=== PATIENT | female | born 1945 | race Caucasian/White ===

== ENCOUNTER 2016-11-03 06:41 | Outpatient (CLI) ==
[2016-04-12 12:45] VITALS: BMI 29.7
--- NOTE | 2016-11-06 12:40 | ECHO2D ---
Date of Exam: 11/03/16 Ordering Physician: HAYLEY ZABALA Reason for Echo: CAD WITH STENT, SOB, HTN Auscultation: S1, S2 M-Mode Normal Adult Results LV Dimensions Normal Adult Results AoV Opening excursions >1.6 >1.6 LVEDD-base- 3.5-5.8 5.1 Ao root dimensions 2.0-3.7 3.0 LVESD-base- 3.1-4.6 L. Atrium dimensions 1.9-3.8 5.1 Post. Wall thickness 0.8-1.1 1.1 IV septum (thickness) 0.7-1.2 1.2 Post. Wall excursion 0.72-1.3 NORMAL Septal motion NORMAL Systolic motion R. Ventricular cavity 1.5-2.0 NORMAL LVEF 60% 50% Paradoxical septal wall motion NORMAL 2-D : NORMAL VALVES--WEAK NORMAL LEFT VENTRICULAR CONTRACTILITY--NO EFFUSION, NO THROMBUS, ENLARGED LEFT ATRIAL SIZE M-MODE: MV: NORMAL AV: NORMAL TV: NORMAL PV: CHAMBER SIZE: ENLARGED LEFT ATRIAL SIZE WALL MOTION: NORMAL PERICARDIUM: NORMAL INTERPRETATION: 1. BORDERLINE LEFT VENTRICULAR HYPERTROPHY WITH ENLARGED LEFT ATRIAL CAVITY 2. NORMAL LEFT VENTRICULAR CONTRACTILITY 3. NORMAL VALVES MTDD
== END 2016-11-03 06:42 | disposition home or self-care (01) ==
LOC: CAR 06:41
PROVIDERS: ATTEND Internal Medicine
DX: R06.02 Shortness of breath (principal); I10 Essential (primary) hypertension; I25.10 Atherosclerotic heart disease of native coronary artery without angina pectoris; Z95.5 Presence of coronary angioplasty implant and graft

== ENCOUNTER 2016-11-06 07:06 | Outpatient (CLI) ==
[2016-04-12 12:45] VITALS: BMI 29.7
--- NOTE | 2016-11-08 11:40 | STRESSMOD ---
Ordering Physician: HAYLEY ZABALA Date of Test: 11/06/16 Medical History: SOB, HTN, CAD WITH STENT Current Medications: LOSARTAN, ATORVASTATIN, ATENOLOL, FUROSEMIDE, CATALINA, DIAZEPAM Physical Findings: S1, S2 NO S3 Resting EKG: SINUS RHYTHM/NO ACUTE CHANGES Target Heart Rate: 128/151 STAGE MPH/GRADE HEART RATE BPM BLOOD PRESSURE MMHG RHYTHM S-T SEGMENT UP DOWN SYMPTOMS,COMMENTS At Rest 58 166/80 SR X NONE 1 1.7/0% 92 180/70 SR X NONE 2 1.7/5% 95 168/78 SR X NONE 3 1.7/10% 4 2.5/12% 5 3.4/14% 6 4.2/16% 7 5.18% Immediately after 100 SR X SHORT OF BREATH Total Time: 7:13 Maximum Heart Rate Reached: 100 Reason for Termination: SHORT OF BREATH 3 MIN POST EXERCISE--HR/BPM 68, SINUS RHYTHM, ST +/- ____ INTERPRETATION: 98% OXYGEN SATURATION WITH EXERCISE ON ROOM AIR METS 4.6 1. NO EVIDENCE OF ISCHEMIA BY ST-T WAVE FROM RESTING HEART RATE 58/MIN TO 100/ MIN WITH EXERCISE 2. NO CHEST PAIN OR CHEST DISCOMFORT 3. NO ARRHYTHMIAS 4. BLOOD PRESSURE RESPONSE: HYPERTENSION AT REST AND WITH EXERCISE NORMAL LEFT VENTRICULAR CONTRACTILITY--RESTING AND POST EXERCISE BY ECHO MTDD
--- NOTE | 2016-11-08 11:42 | ECHOSTRESS ---
Date of Exam: 11/06/16 Ordering Physician: HAYLEY ZABALA Reason for Echo: SOB, HTN, CAD WITH STENT, STRESS TEST--NO ISCHEMIA M-Mode Normal Adult Results LV Dimensions Normal Adult Results AoV Opening excursions >1.6 LVEDD-base- 3.5-5.8 Ao root dimensions 2.0-3.7 LVESD-base- 3.1-4.6 L. Atrium dimensions 1.9-3.8 Post. Wall thickness 0.8-1.1 IV septum (thickness) 0.7-1.2 Post. Wall excursion 0.72-1.3 Septal motion Systolic motion R. Ventricular cavity 1.5-2.0 LVEF 60% Paradoxical septal wall motion 2-D: NORMAL LEFT VENTRICULAR CONTRACTILITY--RESTING AND POST EXERCISE M-MODE: MV: AV: TV: PV: CHAMBER SIZE: WALL MOTION: NORMAL LEFT VENTRICULAR CONTRACTILITY--RESTING AND POST EXERCISE PERICARDIUM: INTERPRETATION: 1. NORMAL LEFT VENTRICULAR CONTRACTILITY--RESTING AND POST EXERCISE MTDD
== END 2016-11-06 07:07 | disposition home or self-care (01) ==
LOC: CAR 07:06
PROVIDERS: ATTEND Internal Medicine
DX: R06.02 Shortness of breath (principal); I10 Essential (primary) hypertension; I25.10 Atherosclerotic heart disease of native coronary artery without angina pectoris; Z95.5 Presence of coronary angioplasty implant and graft

== ENCOUNTER 2016-12-18 07:21 | Day surgery (SDC) ==
[2016-04-12 12:45] VITALS: BMI 29.7
[2016-12-18] MEDS ORDERED: LIDOCAINE 1% 20 ML MDV ID ONE (07:41)
[2016-12-18] MEDS ORDERED: LIDOCAINE 1% 20 ML MDV ONE (07:41)
[2016-12-18] MEDS ORDERED: DIPRIVAN 20 ML VIAL IVP ONE (09:15)
[2016-12-18] MEDS ORDERED: VERSED ONE (09:15)
[2016-12-18 10:22] VITALS: BP 134/72; TEMP 97.8
--- NOTE | 2016-12-18 14:07 | OP ---
PROCEDURE: COLONOSCOPY TO THE CECUM WITH SNARE POLYPECTOMY. ENDOSCOPIST: Afua POLLARD M.D. INDICATION: HISTORY OF ADENOMATOUS POLYPS, LAST COLONOSCOPY 5 YEARS PRIOR. INSTRUMENT: PCDynamic Yield-190. MEDICATION: PER ANESTHESIA. PROCEDURE: The patient was positioned for colonoscopy. The digital rectal exam was negative. The colonoscope was inserted through the anus and advanced to the cecum. The cecum was identified using the ileocecal valve and the appendiceal orifice as landmarks. The scope was slowly withdrawn through an adequately prepped colon. A small polyp at 60 cm removed using cold snare polypectomy. A second polyp at 20 cm removed using cold snare polypectomy. Scattered diverticula noted in left colon. Retroflex exam was otherwise normal. The patient tolerated the procedure well without immediate complication. Withdrawal time 12 minutes, 10 seconds. PLAN: 1. Review pathology. 2. Anticipate repeat colonoscopy in 5 years. CC: DR. SAGRARIO GALLAGHER
== END 2016-12-18 10:36 | disposition home or self-care (01) ==
LOC: SURG 07:21
PROVIDERS: ATTEND Internal Medicine Gastroenterology
DX: Z86.010 Personal history of colon polyps (principal); D12.4 Benign neoplasm of descending colon; D12.7 Benign neoplasm of rectosigmoid junction; K57.30 Diverticulosis of large intestine without perforation or abscess without bleeding

== ENCOUNTER 2017-07-27 10:45 | Outpatient (RCR) ==
[2016-04-12 12:45] VITALS: BMI 29.7
== END 2017-07-28 ==
LOC: NEWBEG 10:45
PROVIDERS: ATTEND Psychiatry & Neurology Psychiatry
DX: F32.2 Major depressive disorder, single episode, severe without psychotic features (principal)
CPT/HCPCS: 90792

== ENCOUNTER 2018-09-05 07:46 | Outpatient (CLI) ==
[2016-04-12 12:45] VITALS: BMI 29.7
--- NOTE | 2018-09-05 08:32 | US ---
EXAM: Limited abdominal ultrasound. History: Elevated liver enzymes. Comparison: CT abdomen pelvis 01/15/2015 Technique: Multiple sonographic images through the abdomen were obtained. Color duplex Doppler was used to interrogate vascular flow. Findings: The liver is not enlarged. Status post cholecystectomy. No focal liver lesions identified sonograph ically. There is antegrade flow within the main portal vein. The liver does not appear fatty. Comm on bile duct measures 0.4 cm in caliber. The visualized pancreas demonstrates no gross abnormality. Limited visualization of the right kidney demonstrates no evidence for hydronephrosis. Impression: 1. No acute sonographic findings. 2. Status post cholecystectomy
== END 2018-09-05 07:47 | disposition home or self-care (01) ==
LOC: RAD 07:46
PROVIDERS: ATTEND Internal Medicine
DX: R94.5 Abnormal results of liver function studies (principal)

== ENCOUNTER 2018-12-05 10:48 | Outpatient (CLI) | payer OTHER ==
[2016-04-12 12:45] VITALS: BMI 29.7
--- NOTE | 2018-12-05 11:23 | DI ---
EXAM: Two views of the chest. History: Cough. Comparison: Chest radiograph 06/28/2015 Findings: Heart is borderline enlarged. No focal consolidation. No appreciable pleural fluid and n o pneumothorax. No acute osseous abnormalities. Calcified granulomas again seen within the thorax. Coronary calcifications or stents. Impression: Borderline cardiomegaly without acute disease in the chest. Coronary artery disease
== END 2018-12-05 10:49 | disposition home or self-care (01) ==
LOC: RAD 10:48
PROVIDERS: ATTEND Internal Medicine
DX: R05 Cough (principal)

== ENCOUNTER 2021-01-31 09:48 | Inpatient (IN) ==
--- NOTE | 2021-01-31 10:56 | US ---
EXAM: Bilateral lower extremity venous doppler. HISTORY: Bilateral lower extremity pain. Left leg swelling. COMPARISON: None. TECHNIQUE: A duplex Doppler study was performed consisting of integrated two dimensional (2D) real-t ivone imaging color flow Doppler and Doppler spectral analysis utilizing linear array probes. FINDINGS: There is normal flow, venous waveforms, compressibility and augmentation of flow within th e right and left common femoral, greater saphenous, profunda, femoral, popliteal, posterior tibial, a nterior tibial and peroneal veins. IMPRESSION: No evidence for right or left lower extremity deep vein thrombosis at the levels examined.
[2021-01-31 14:36] VITALS: BMI 31.6
[2021-01-31] MEDS ORDERED: TYLENOL PO PRN (14:57)
[2021-01-31] MEDS ORDERED: NITROSTAT SL PRN (14:57)
[2021-01-31] MEDS ORDERED: ATROPINE SULFATE PFS IVP PRN (14:57)
[2021-01-31 15:14] LABS: BASOPHILS % (AUTO) 0.4 % (0.0-3.0); EOSINOPHILS # (AUTO) 0.1 K/ul (0.0-0.7); HEMATOCRIT 42.7 % (37.0-47.0); HEMOGLOBIN 13.8 g/dl (12.0-16.0); IMMATURE GRANULOCYTE % (AUTO) 0.2 % (0.0-5.0); LYMPHOCYTES % (AUTO) 21.6 (10.0-50.0); MEAN CORPUSCULAR HEMOGLOBIN 27.7 pg (27.0-31.0); MEAN CORPUSCULAR HGB CONC 32.3 (31.8-35.4); MEAN CORPUSCULAR VOLUME 85.7 fl (81.0-99.0); MONOCYTES # (AUTO) 0.8 K/uL (0.4-2.0); MONOCYTES % (AUTO) 9.3 (0-10); NEUTROPHILS # (AUTO) 6.1 K/ul (2.0-6.9); NEUTROPHILS % (AUTO) 67.5 % (42.2-75.2); PLATELET COUNT 232 10^3/uL (140-440); RDW COEFFICIENT OF VARIATION 13.6 % (11.6-14.8); RED BLOOD COUNT 4.98 10^6/ul (4.20-5.40); WHITE BLOOD COUNT 9.03 K/ul (4.6-10.2)
[2021-01-31 15:32] LABS: ALANINE AMINOTRANSFERASE 15.7 U/L (0-35); ASPARTATE AMINO TRANSFERASE 27.4 U/L (14-36); BILIRUBIN,TOTAL 0.75 mg/dL (0.2-1.3); BLOOD UREA NITROGEN 18.3 mg/dL (7-17); CALCIUM 9.74 mg/dL (8.4-10.2); CARBON DIOXIDE 31.5 mmol/L (22-30.0); CHLORIDE 104.1 mmol/L (98-107); CREATINE KINASE 81.5 U/L (30-135); CREATININE 0.81 mg/dL (0.60-1.30); GLUCOSE 104.2 mg/dL (74-106); POTASSIUM 3.79 mmol/L (3.5-5.1); SODIUM 140.1 mmol/L (134.5-145); TOTAL PROTEIN 6.96 g/dL (6.3-8.2)
[2021-01-31] MEDS ORDERED: LASIX IVP STA (15:34)
[2021-01-31] MEDS ORDERED: TORADOL IVP PRN (15:36)
[2021-01-31] MEDS ORDERED: TORADOL IVP STA (15:36)
[2021-01-31 15:49] LABS: TROPONIN I < 0.012 ng/ml (0.0000-0.120)
--- NOTE | 2021-01-31 16:16 | DI ---
EXAM: CHEST FRONTAL VIEW HISTORY: Shortness of breath COMPARISON: 12/05/2018 FINDINGS: Prominent heart size is stable. No acute infiltrates are seen. No vascular congestion. There is no consolidation, visible pleural fluid or pneumothorax. Bones reveal no acute fracture. IMPRESSION: No acute cardiopulmonary process.
[2021-01-31 16:45] LABS: BILIRUBIN,URINE Negative (NEGATIVE); CLARITY,URINE Clear (CLEAR); COLOR,URINE Yellow (YELLOW); GLUCOSE, URINE (UA) Negative (NEGATIVE); KETONES,URINE Negative (NEGATIVE); LEUKOCYTE ESTERASE ,URINE Trace (NEGATIVE); NITRITE,URINE Negative (NEGATIVE); PH,URINE 7.5 (5-9); PROTEIN,URINE Negative (NEGATIVE); URINE, BLOOD Negative (NEGATIVE)
[2021-01-31 16:50] LABS: MUCUS,URINE 1+ (NOT PRESENT); TRANSITIONAL EPI CELLS,URINE 0-2 (NOT PRESENT)
[2021-01-31] MEDS: MICRO-K CAP PO SCH (17:17)
[2021-01-31] MEDS: COREG PO SCH (17:17)
[2021-01-31] MEDS: COZAAR PO SCH (20:09)
[2021-01-31] MEDS: LIPITOR PO SCH (20:09)
[2021-01-31] MEDS: OMEGA-3 FISH OIL PO SCH (20:09)
[2021-01-31] MEDS: [UNRECOGNIZED DRUG - OTHER] PO SCH (20:14)
[2021-01-31] MEDS: VITAMINS A C E ZINC COPPER PO SCH (20:14)
[2021-01-31] MEDS ORDERED: NON-FORMULARY MEDICATION (Omega-3 Fatty Acids-Fish Oil [Fish Oil] 1 EACH capsule) PO SCH (21:00)
[2021-01-31 23:10] LABS: CREATINE KINASE 62.4 U/L (30-135)
[2021-01-31 23:23] LABS: TROPONIN I < 0.012 ng/ml (0.0000-0.120)
[2021-02-01 05:23] LABS: BASOPHILS # (AUTO) 0.1 K/uL (0-0.2); BASOPHILS % (AUTO) 0.8 % (0.0-3.0); EOSINOPHILS # (AUTO) 0.2 K/ul (0.0-0.7); EOSINOPHILS % (AUTO) 2.6 % (0.0-7.0); HEMATOCRIT 41.2 % (37.0-47.0); HEMOGLOBIN 13.6 g/dl (12.0-16.0); IMMATURE GRANULOCYTE % (AUTO) 0.1 % (0.0-5.0); LYMPHOCYTES # (AUTO) 2.4 K/uL (0.60-3.4); LYMPHOCYTES % (AUTO) 32.9 (10.0-50.0); MEAN CORPUSCULAR HEMOGLOBIN 28.2 pg (27.0-31.0); MEAN CORPUSCULAR VOLUME 85.5 fl (81.0-99.0); MONOCYTES # (AUTO) 0.6 K/uL (0.4-2.0); MONOCYTES % (AUTO) 8.8 (0-10); NEUTROPHILS # (AUTO) 3.9 K/ul (2.0-6.9); NEUTROPHILS % (AUTO) 54.8 % (42.2-75.2); PLATELET COUNT 218 10^3/uL (140-440); RDW COEFFICIENT OF VARIATION 13.6 % (11.6-14.8); RED BLOOD COUNT 4.82 10^6/ul (4.20-5.40); WHITE BLOOD COUNT 7.18 K/ul (4.6-10.2)
[2021-02-01 05:37] LABS: ALANINE AMINOTRANSFERASE 15.1 U/L (0-35); ALBUMIN 3.91 g/dL (3.5-5.0); ALKALINE PHOSPHATASE 79.5 U/L (53-141); BILIRUBIN,TOTAL 0.8 mg/dL (0.2-1.3); BLOOD UREA NITROGEN 21.7 mg/dL (7-17); CALCIUM 9.27 mg/dL (8.4-10.2); CARBON DIOXIDE 29.4 mmol/L (22-30.0); CHLORIDE 105.9 mmol/L (98-107); CREATININE 0.71 mg/dL (0.60-1.30); GLUCOSE 104.2 mg/dL (74-106); POTASSIUM 3.77 mmol/L (3.5-5.1); SODIUM 140.9 mmol/L (134.5-145); TOTAL PROTEIN 6.76 g/dL (6.3-8.2)
[2021-02-01] MEDS: PEPCID PO SCH (05:53)
[2021-02-01] MEDS: LASIX IVP SCH (05:53)
[2021-02-01] MEDS: OMEGA-3 FISH OIL PO SCH ×2 (09:17→20:28)
[2021-02-01] MEDS: COZAAR PO SCH ×2 (09:17→20:28)
[2021-02-01] MEDS: MICRO-K CAP PO SCH ×2 (09:18→16:30)
[2021-02-01] MEDS: NORVASC PO SCH (09:18)
[2021-02-01] MEDS: COREG PO SCH ×2 (09:18→16:30)
[2021-02-01] MEDS: ASPIRIN EC PO SCH (09:18)
[2021-02-01] MEDS: LEXAPRO PO SCH (09:18)
[2021-02-01] MEDS: VITAMINS A C E ZINC COPPER PO SCH ×2 (09:25→20:29)
[2021-02-01] MEDS: [UNRECOGNIZED DRUG - OTHER] PO SCH ×2 (09:25→20:29)
--- NOTE | 2021-02-01 11:16 | HP ---
DATE OF SERVICE: 01/31/21 REASON FOR HOSPITALIZATION/HISTORY OF PRESENT ILLNESS: 75--year-old female who presents with swelling left lower leg or knee pain, thigh and back pain times 7 to 8 days. Moderate to severe pain. She could not sleep last night. No history of DVT, no history of injury. History of shortness of breath/got Covid vaccine/no symptoms of CHF/CAD or Covid. PAST MEDICAL HISTORY: LVH CAD with stent Hypertension Dyslipidemia Hyperglycemia DJD lumbar spine ZABRINA/depression History of vertigo Osteoarthritis of the knee PAST SURGICAL HISTORY: Stents times 5. Cholecystectomy. Lumpectomy (right and left) breast. Bilateral cataract surgery REVIEW OF SYSTEMS: CONSTITUTIONAL: No fever, no fatigue. HEENT: No sinus drainage, no sore throat. RESPIRATORY: No cough, no congestion. CARDIOVASCULAR: Mild shortness of breath. No atypical chest pain for coronary artery disease. No angina, CHF symptoms, or palpitations. GASTROINTESTINAL: No melena or abdominal pain. No GERD. GENITOURINARY: No hematuria, [] no prostatism, no polyuria. 3D ARTIST: No blackout, no dizziness, no headache, no double vision. MUSCULOSKELETAL: Osteoarthritis pain. Leg pain, calf, past knee, thigh. No joint swelling. ENDOCRINE: No weight loss, no weight gain. SKIN: Not dry, no rash. PSYCHIATRIC: Not anxious, no depression, no suicidal thoughts, no homicidal thoughts. SOCIAL HISTORY: Nonsmoker. . No alcohol use. No illicit drug use. Two children. FAMILY HISTORY: Father and mother . Brother (s) 4. Sister(s) 0. MEDICATIONS: ASA 81 mg daily Fish Oil 4 daily Atorvastatin 10 mg daily Nitroglycerin p.r.n. K-tab 10 mEq b.i.d. Eye vitamins daily Lasix 20 mg daily Losartan 50 mg b.i.d. Amlodipine 5 mg daily Famotidine 20 mg OTC Lexapro 10 mg daily Coreg 6.25 mg b.i.d. ALLERGIES: NEURONTIN (DIZZINESS), LISINOPRIL(COUGH) PHYSICAL EXAMINATION: V/S: Pulse 69, BP 122/72, temperature 98.1, 02 sat 97%, weight 192.2, height 5'5", BMI 32.0. GENERAL APPEARANCE: Oriented times three. HEENT: Normal. NECK: No JVP, no bruits. RESPIRATORY: Lungs are clear. CARDIOVASCULAR: S1, S2, no S3, no murmur. No cyanosis, clubbing. No ascites. GI/ABDOMEN: No tenderness. Bowel sounds are active. EXTREMITIES: Swelling of left calf, thigh and left knee. Positive for tenderness of calf. +2 nonpitting edema of left greater than right. 3D ARTIST: Deep tendon reflexes, sensory, motor and gait all normal. RECTAL/PELVIC: Dr. Bennett 12/15. Pelvic: Advised yearly. Mammogram 07/18, Dr. Friedman. ASSESSMENT: 1. Left lower extremity with swelling, 2. Leg pain/swelling - rule out DVT. 3. Left sciatica. 4. LVH with increase LAC hypokinetic septum. 5. Shortness of breath with fluid retention. 6. ZABRINA/depression. 7. History of vertigo. 8. Elevated liver enzymes. 9. History of Herpes Zoster. 10. CAD with stent 10/09 Dr. Boles. 11. Hypertension. 12. Dyslipidemia. 13. Status post cholecystectomy. 14. Non-stemi 10/09. 15. Hyperglycemia. 16. Osteoarthritis knee. 17. DJD spine, lumbar. 18. Right lumpectomy, Dr. Friedman. 19. Bilateral cataract surgery 04/16. 20. Hysterectomy. Bilateral venous scan left leg swollen/calf with knee swelling. Scan negative. PLAN: 1. Admit. 2. Routine telemetry orders. 3. T4, TSH. 4. Elevate legs. 5. Continue all home medications. 6. Discontinue p.o. Lasix. 7. Lasix 20 mg IV now and q.a.m. daily. 8. Daily weight. 9. Toradol 30 mg IV now and 8 hourly for pain. TIME SPENT: More than 70 minutes. MTDD
--- NOTE | 2021-02-01 16:51 | CT ---
EXAM: CT left knee without contrast. HISTORY: Acute left knee pain. COMPARISON: None. TECHNIQUE: Multiple axial images of the left knee were obtained without intravenous contrast. Image s were reformatted in the sagittal and coronal planes. FINDINGS: Bone mineralization decreased. No fracture or dislocation identified. There is mild medi al compartment joint space narrowing with subchondral sclerosis. Small marginal osteophytes present in all three knee joint compartments. Small patellar enthesophytes also present. Meniscal calcifica tions noted along with a few additional areas of chondrocalcinosis. There is a moderate-sized joint effusion. No internal air or synovial thickening identified. There is soft tissues are otherwise un remarkable. IMPRESSION: 1. Mild osteoarthritis and patellar enthesopathy. 2. Moderate joint effusion. 3. Chondrocalcinosis. All CT scans are performed using dose optimization techniques as appropriate to the performed exam an d include at least one of the following: Automated exposure control, adjustment of the mA and/or kV according t o size, and the use of iterative reconstruction technique.
--- NOTE | 2021-02-01 16:54 | CT ---
EXAM: CT lumbar spine without contrast HISTORY: Low back pain COMPARISON: None TECHNIQUE: CT lumbar spine performed without intravenous contrast. Coronal and sagittal reformatted images obtained FINDINGS: Vertebral bodies normal height. No fracture. No subluxation. Multilevel marginal osteop hyte formation. Multilevel intervertebral disc space narrowing. Sacroiliac joints intact with mild degenerative change. Mild atherosclerosis. T12-L1: No central canal or neural foraminal narrowing. L1-L2: Posterior disc osteophyte complex and facet arthrosis causing mild bilateral neural foraminal narrowing. L2-L3: Posterior disc osteophyte complex and facet arthrosis causing mild central canal and mild johnny ateral neural foraminal narrowing. L3-L4: Posterior disc osteophyte complex and facet arthrosis causing mild to moderate central canal and mild to moderate bilateral neural foraminal narrowing. L4-L5: Disc osteophyte complex and facet arthrosis causing mild to moderate central canal and mild b ilateral neural foraminal narrowing. L5-L1: Posterior disc osteophyte complex and facet arthrosis causing mild to moderate bilateral neur al foraminal narrowing. Canal and IMPRESSION: 1. No fracture subluxation. 2. Chronic discogenic degenerative disease and facet arthrosis. Please see segmental analysis, noti ng multilevel central canal and neural foraminal narrowing. All CT scans are performed using dose optimization techniques as appropriate to the performed exam an d include at least one of the following: Automated exposure control, adjustment of the mA and/or kV according t o size, and the use of iterative reconstruction technique.
[2021-02-01] MEDS: LIPITOR PO SCH (20:28)
[2021-02-02 05:12] LABS: BASOPHILS # (AUTO) 0.1 K/uL (0-0.2); EOSINOPHILS # (AUTO) 0.3 K/ul (0.0-0.7); EOSINOPHILS % (AUTO) 4.3 % (0.0-7.0); HEMATOCRIT 39.8 % (37.0-47.0); IMMATURE GRANULOCYTE % (AUTO) 0.3 % (0.0-5.0); LYMPHOCYTES # (AUTO) 2.2 K/uL (0.60-3.4); MEAN CORPUSCULAR HEMOGLOBIN 27.7 pg (27.0-31.0); MEAN CORPUSCULAR HGB CONC 32.7 (31.8-35.4); MEAN CORPUSCULAR VOLUME 84.9 fl (81.0-99.0); MONOCYTES # (AUTO) 0.6 K/uL (0.4-2.0); MONOCYTES % (AUTO) 9.2 (0-10); NEUTROPHILS # (AUTO) 2.9 K/ul (2.0-6.9); NEUTROPHILS % (AUTO) 49.2 % (42.2-75.2); PLATELET COUNT 216 10^3/uL (140-440); RDW COEFFICIENT OF VARIATION 13.6 % (11.6-14.8); RED BLOOD COUNT 4.69 10^6/ul (4.20-5.40); WHITE BLOOD COUNT 5.98 K/ul (4.6-10.2)
[2021-02-02 05:24] LABS: ALANINE AMINOTRANSFERASE 14.8 U/L (0-35); ALBUMIN 3.69 g/dL (3.5-5.0); ALKALINE PHOSPHATASE 80.7 U/L (53-141); ASPARTATE AMINO TRANSFERASE 27.1 U/L (14-36); BILIRUBIN,TOTAL 0.57 mg/dL (0.2-1.3); BLOOD UREA NITROGEN 24.4 mg/dL (7-17); CALCIUM 9.04 mg/dL (8.4-10.2); CARBON DIOXIDE 26.9 mmol/L (22-30.0); CHLORIDE 105.4 mmol/L (98-107); CREATININE 0.7 mg/dL (0.60-1.30); GLUCOSE 100.7 mg/dL (74-106); POTASSIUM 3.85 mmol/L (3.5-5.1); SODIUM 137.7 mmol/L (134.5-145); TOTAL PROTEIN 6.41 g/dL (6.3-8.2)
[2021-02-02] MEDS: LASIX IVP SCH (05:55)
[2021-02-02] MEDS: PEPCID PO SCH (05:55)
[2021-02-02] MEDS: VITAMINS A C E ZINC COPPER PO SCH ×2 (09:08→20:50)
[2021-02-02] MEDS: MICRO-K CAP PO SCH ×2 (09:08→16:45)
[2021-02-02] MEDS: [UNRECOGNIZED DRUG - OTHER] PO SCH ×2 (09:08→20:50)
[2021-02-02] MEDS: COZAAR PO SCH ×2 (09:08→20:48)
[2021-02-02] MEDS: ASPIRIN EC PO SCH (09:08)
[2021-02-02] MEDS: NORVASC PO SCH (09:09)
[2021-02-02] MEDS: LEXAPRO PO SCH (09:09)
[2021-02-02] MEDS: OMEGA-3 FISH OIL PO SCH ×2 (09:09→20:48)
[2021-02-02] MEDS: COREG PO SCH ×2 (09:09→16:45)
[2021-02-02] MEDS: DICLOFENAC SODIUM PO SCH ×2 (11:57→16:45)
[2021-02-02] MEDS: DECADRON IM SCH (13:06)
--- NOTE | 2021-02-02 14:23 | PN ---
DATE OF SERVICE: 02/01/2021 SUBJECTIVE: The patient was seen and examined this morning. The patient's condition seem to have improved. Her pain in the left lower extremity has practically subsided with Toradol IV, Lasix with practically not much swelling left in her lower extremity with the fluid retention. It was also present on the right side to less extent. At the patient present time the patient's calf muscles are nontender. REVIEW OF SYSTEMS: CONSTITUTIONAL: No night sweats. No fatigue, malaise, lethargy. No fever or chills. HEENT: Eyes: No visual changes. No eye pain. No eye discharge. ENT: No runny nose. No epistaxis. No sinus pain. No sore throat. No odynophagia. No congestion. RESPIRATORY: No cough, no congestion. No hemoptysis. No shortness of breath. CARDIOVASCULAR: No angina symptoms. No CHF symptoms. No atypical chest pain for CAD. No palpitations. No PND. No orthopnea. GASTROINTESTINAL: No abdominal pain. No nausea or vomiting. No diarrhea or constipation. No hematemesis. No hematochezia. GENITOURINARY: No urgency. No frequency. No dysuria. No hematuria. No obstructive symptoms. No discharge. No pain. No significant abnormal bleeding. MUSCULOSKELETAL: No musculoskeletal pain; no joint swelling. Pain is much better on the left lower extremity NEUROLOGICAL: No headache. No neck pain. No syncope. No seizures. No dizziness. PSYCHIATRIC: Not anxious. No depression. No suicidal thoughts. No homicidal thoughts. SKIN: No rash. No lesions. No wounds. ENDOCRINE: No unexplained weight loss. No weight gain. HEMATOLOGIC/LYMPHATIC: No anemia. No purpura. No petechiae. No prolonged or excessive bleeding. No palpable lymph nodes. PHYSICAL EXAMINATION: GENERAL: The patient is oriented to time, place and person. HEENT: Head normocephalic, atraumatic. Eyes: Extraocular muscles are intact. Pupils are equal, round and reactive to light and accommodation. Ears: No lesions. Nose appeared normal. Throat: No exudate or erythema. NECK: Supple. No JVD, no carotid bruit. No lymphadenopathy or thyromegaly. LUNGS: Decreased breath sounds but clear to auscultation. Percussion note normal. Chest symmetrical. HEART: S1, S2, no S3. No murmurs. No cyanosis or clubbing. No ascites. Pulses: Dorsalis pedis and posterior tibial pulses +1 bilaterally. ABDOMEN: Soft. Nontender. Bowel sounds active. No CVA tenderness. No mass felt. EXTREMITIES: No edema. Full range of motion of all extremities, equal. Both lower extremities are warm. NEUROLOGIC: No focal deficit. Cranial nerves II through XII are grossly intact. No headache. No double vision. SKIN: Not dry. Intact. Turgor - normal. LYMPHATIC: No palpable lymph nodes/no lymphedema. MUSCULOSKELETAL: Normal joints with no swelling. Muscle tone is normal. ASSESSMENT: 1. Left lower extremity swelling with pain, scan was negative. Leg edema has subsided. PLAN: 1. We will do CT scan of the lumbosacral spine CONDITION:Stable. TIME SPENT: More than 30 minutes. Plan and coordination of the patient's care discussed in the presence of nurse. ELLIOTT
[2021-02-02] MEDS: LIPITOR PO SCH (20:48)
[2021-02-03 05:30] LABS: BASOPHILS % (AUTO) 0.5 % (0.0-3.0); EOSINOPHILS % (AUTO) 0.4 % (0.0-7.0); HEMATOCRIT 40.2 % (37.0-47.0); HEMOGLOBIN 13.2 g/dl (12.0-16.0); IMMATURE GRANULOCYTE % (AUTO) 0.3 % (0.0-5.0); LYMPHOCYTES # (AUTO) 1.7 K/uL (0.60-3.4); LYMPHOCYTES % (AUTO) 21.9 (10.0-50.0); MEAN CORPUSCULAR HEMOGLOBIN 28.1 pg (27.0-31.0); MEAN CORPUSCULAR HGB CONC 32.8 (31.8-35.4); MEAN CORPUSCULAR VOLUME 85.7 fl (81.0-99.0); MONOCYTES # (AUTO) 0.4 K/uL (0.4-2.0); MONOCYTES % (AUTO) 5.5 (0-10); NEUTROPHILS # (AUTO) 5.4 K/ul (2.0-6.9); NEUTROPHILS % (AUTO) 71.4 % (42.2-75.2); PLATELET COUNT 238 10^3/uL (140-440); RDW COEFFICIENT OF VARIATION 13.3 % (11.6-14.8); RED BLOOD COUNT 4.69 10^6/ul (4.20-5.40); WHITE BLOOD COUNT 7.59 K/ul (4.6-10.2)
[2021-02-03] MEDS: LASIX IVP SCH (05:31)
[2021-02-03 05:46] LABS: ALANINE AMINOTRANSFERASE 14.5 U/L (0-35); ALBUMIN 3.91 g/dL (3.5-5.0); ALKALINE PHOSPHATASE 101.1 U/L (53-141); ASPARTATE AMINO TRANSFERASE 26.2 U/L (14-36); BILIRUBIN,TOTAL 0.52 mg/dL (0.2-1.3); CALCIUM 9.43 mg/dL (8.4-10.2); CARBON DIOXIDE 23.8 mmol/L (22-30.0); CHLORIDE 105.2 mmol/L (98-107); CREATININE 0.69 mg/dL (0.60-1.30); GLUCOSE 117.8 mg/dL (74-106); POTASSIUM 4.23 mmol/L (3.5-5.1); SODIUM 136.4 mmol/L (134.5-145); TOTAL PROTEIN 6.74 g/dL (6.3-8.2)
[2021-02-03] MEDS: PEPCID PO SCH (05:46)
[2021-02-03] MEDS ORDERED: DECADRON IM SCH (09:00)
[2021-02-03] MEDS: MICRO-K CAP PO SCH (09:42)
[2021-02-03] MEDS: ASPIRIN EC PO SCH (09:42)
[2021-02-03] MEDS: [UNRECOGNIZED DRUG - OTHER] PO SCH (09:42)
[2021-02-03] MEDS: LEXAPRO PO SCH (09:42)
[2021-02-03] MEDS: VITAMINS A C E ZINC COPPER PO SCH (09:42)
[2021-02-03] MEDS: COZAAR PO SCH (09:43)
[2021-02-03] MEDS: COREG PO SCH (09:43)
[2021-02-03] MEDS: DECADRON IM SCH (09:43)
[2021-02-03] MEDS: NORVASC PO SCH (09:43)
[2021-02-03] MEDS: OMEGA-3 FISH OIL PO SCH (09:43)
[2021-02-03] MEDS: DICLOFENAC SODIUM PO SCH (09:43)
--- NOTE | 2021-02-03 13:55 | PN ---
DATE OF SERVICE: 02/02/21 SUBJECTIVE: 75-year-old white female hospitalized with left leg pain which was rated as 7 to 8 on a scale of 1 to 10 with swelling and tightness with some swelling of the right lower extremity. The patient was also mildly short of breath. The patient had fluid retention. The patient's fluid retention has subsided. Venous scan is negative. Her pain is 1 to 2 on a scale of [address] scan of the L-spine showed DJD of L-spine mild to moderate. The left knee CT scan showed moderate effusion with DJD. PHYSICAL EXAMINATION: GENERAL: The patient is oriented to time, place and person. VITAL SIGNS: Temperature 98, pulse 55, respiratory rate 16, BP 165/79. Pulse ox 96%. HEENT: Head normocephalic, atraumatic. Eyes: Extraocular muscles are intact. Pupils are equal, round and reactive to light and accommodation. Ears: No lesions. Nose appeared normal. Throat: No exudate or erythema. NECK: Supple. No JVD, no carotid bruit. No lymphadenopathy or thyromegaly. LUNGS: Decreased breath sounds but clear to auscultation. Percussion note normal. Chest symmetrical. HEART: S1, S2, no S3. No murmurs. No cyanosis or clubbing. No ascites. Pulses: Dorsalis pedis and posterior tibial pulses +1 to +2 bilaterally. ABDOMEN: Soft. Nontender. Bowel sounds active. No CVA tenderness. No mass felt. EXTREMITIES: No edema. Full range of motion of all extremities, equal. NEUROLOGIC: No focal deficit. Cranial nerves II through XII are grossly intact. No headache. No double vision. SKIN: Not dry. Intact. Turgor - normal. LYMPHATIC: No palpable lymph nodes/no lymphedema. MUSCULOSKELETAL: Normal joints with no swelling. Muscle tone is normal. LABS: Hemoglobin 13, hematocrit 39, WBC 5,900, normal differential. Creatinine 0.7, BUN 24, potassium 3.8. ASSESSMENT: 1. Left lower extremity pain and swelling seems to have subsided. PLAN: 1. Put the patient on Diclofenac 75 p.o. twice a day. 2. 1/2 cc Decadron daily. 3. Will also get physical therapy consult. 4. The patient has been walking three miles a day. Likely the patient may have pseudogout of the left knee causing the pain and swelling about that. 5. She declined any further evaluation with referral to orthopaedic surgeon or neurosurgeon. 6. Echocardiogram to evaluate LV function because of fluid retention and possibility of shortness of breath. She has been walking three miles per day. CONDITION: Stable. TIME SPENT: More than 30 minutes. Plan and coordination of the patient's care discussed in the presence of nurse. ELLIOTT
[2021-02-03 14:02] VITALS: BP 144/80; TEMP 97.9
--- NOTE | 2021-02-04 08:58 | CM.DICTOOL ---
ADMISSION: 01/31/21 13:58 DISCHARGE: FEBRUARY 03, 2021 DATE OF SERVICE: 02/03/21 FINAL DIAGNOSIS LT LOWER EXTREMITY PAIN WITH SWELLING LEFT SCIATICA L KNEE JOINT EFFUSION WITH CHONDROCALCINOSIS - PER LT KNEE CT 02/01/21 HX: LVH WITH INCREASE LAC HYPOKINETIC SEPTUM SHORTNESS OF BREATH WITH FLUID RETENTION VERTIGO ELEVATED LIVER ENZYMES HERPES ZOSTER NON-STEMI - 09/2012 CAD WITH STENT- DR. COLLAZO HYPERTENSION DYSLIPIDEMIA HYPERGLYCEMIA DJD LUMBAR SPINE ZABRINA DEPRESSION OSTEOARTHRITIS OF THE KNEE PAST SURGICAL HISTORY: STENTS TIMES 5 CHOLECYSTECTOMY LUMPECTOMY( RIGHT AND LEFT) BREAST - DR. SAAVEDRA BILATERAL CATARACT SURGERY HYSTERCTOMY LAST VITALS Temp Pulse Resp BP Pulse Ox 97.6 F 62 16 156/79 H 96 02/03/21 05:43 02/03/21 05:43 02/03/21 05:43 02/03/21 07:22 02/03/21 05:43 TAKE THESE MEDICATIONS AT HOME Amlodipine Besylate (Amlodipine Besylate 5 Mg Tablet) 5 mg PO DAILY FORMERLY [facility], [facility] Last Admin: 02/03/21 09:43 Dose: 5 mg Documented by: Aspirin (Aspirin 81 Mg Tablet.) 81 mg PO DAILYWM [facility], [facility]1983 Last Admin: 02/03/21 09:42 Dose: 81 mg Documented by: Atorvastatin Calcium (Atorvastatin Calcium 10 Mg Tablet) 10 mg PO BEDTIME [facility], [facility]1983 Last Admin: 02/02/21 20:48 Dose: 10 mg Documented by: Carvedilol (Carvedilol 6.25 Mg Tablet) 6.25 mg PO BIDWM [facility], [facility]1983 Last Admin: 02/03/21 09:43 Dose: 6.25 mg Documented by: Diclofenac Sodium (Diclofenac Sodium 75 Mg Tablet.) 75 mg PO DAILY -- ( NEW) Last Admin: 02/03/21 09:43 Dose: 75 mg Documented by: Escitalopram Oxalate (Escitalopram Oxalate 10 Mg Tablet) 15 mg PO DAILY [facility] Last Admin: 02/03/21 09:42 Dose: 15 mg Documented by: Famotidine (Famotidine 20 Mg Tablet) 20 mg PO QDAC [facility], [facility]1983 Last Admin: 02/03/21 05:46 Dose: 20 mg Documented by: Fish Oil ([place]-3/Dha/Epa/Fish Oil 1,000 Mg Capsule) 2,000 mg PO BID [facility] Last Admin: 02/03/21 09:43 Dose: 2,000 mg Documented by: Furosemide 40 MG PO QDAC [facility], [facility] --- ( CHANGED) Last Admin: 02/03/21 05:31 Dose: 20 mg Documented by: Losartan Potassium (Losartan Potassium 25 Mg Tablet) 50 mg PO BID [facility] Last Admin: 02/03/21 09:43 Dose: 50 mg Documented by: Nitroglycerin (Nitroglycerin 0.4 Mg Tab.Subl) 0.4 mg SL Q5MIN X 3 DOSES PRN PRN Reason: Chest Pain Non-Formulary Medication (Vitamins A,C,R-Xaje-Pemmea [Preservision Areds]) 1 cap PO BID [facility] Last Admin: 02/03/21 09:42 Dose: 1 cap Documented by: Potassium Chloride (Potassium Chloride 10 Meq Capsule.Er) 10 meq PO BIDWM [facility] Last Admin: 02/03/21 09:42 Dose: 10 meq Documented by: PREDNISONE 10 MG PO BID X 5 DAYS WITH MEAL -- ( NEW) ALLERGIES No Known Allergies Allergy (Verified 04/12/16 12:47) DISCONTINUED MEDICATIONS 1). LASIX 20 MG PO DAILY NEW PRESCRIPTIONS: VOLTERAN (Diclofenac Sodium) 75 mg PO DAILY -- ( NEW) LASIX (Furosemide) 40 MG PO QDAC [facility] --- ( CHANGED) PREDNISONE 10 MG PO BID X 5 DAYS WITH MEAL -- ( NEW) SMOKING: N/A DISEASE SPECIFIC EDUCATION: PAIN CONTROL DAILY WEIGHTS CARDIOMEGALY F/U 2 D ECHO BACK EXERCISES COVID 19 ORTHO F/U LAB REVIEW: 02/03/21 05:25 02/03/21 05:25 02/03/21 05:25: Sodium 136.4, Potassium 4.23, Chloride 105.2, Carbon Dioxide 23.8, Anion Gap 11.63, BUN 26.0 H, Creatinine 0.69, Estimated GFR (MDRD) 83.00, BUN/Creatinine Ratio 37.68, Glucose 117.8 H, Calcium 9.43, Total Bilirubin 0.52, AST 26.2, ALT 14.5, Alkaline Phosphatase 101.1, Total Protein 6.74, Albumin 3.91, Globulin 2.83, Albumin/Globulin Ratio 1.38 02/03/21 05:25: WBC 7.59, RBC 4.69, Hgb 13.2, Hct 40.2, MCV 85.7, MCH 28.1, MCHC 32.8, RDW Coeff of Monique 13.3, Plt Count 238, Immature Gran % (Auto) 0.3, Neut % (Auto) 71.4, Lymph % (Auto) 21.9, [place] % (Auto) 5.5, Eos % (Auto) 0.4, Baso % (Auto) 0.5, Neut # (Auto) 5.4, Lymph # (Auto) 1.7, [place] # (Auto) 0.4, Eos # (Auto) 0.0, Baso # (Auto) 0.0, Immature Gran # (Auto) 0.0 PLAN: DISCHARGE HOME: TODAY, FEBRUARY 03, 2021. LIVES INDEPENDENTLY ACTIVITY: UP TOLERATED WITH FREQUENT REST PERIODS NO OUTSIDE ACTIVITIES UNTIL RELEASED BY MD AT FOLLOW APPOINTMENT FOLLOW BACK EXERCISES WITH INFORMATION PROVIDED BY [facility] THERAPY DEPARTMENT WEIGH DAILY: WHEN YOU FIRST GET UP, AFTER YOU EMPTY YOUR BLADDER AND WHILE STILL IN YOUR BED CLOTHES. REPORT 2-3 LBS IN A DAY OR 5-7 LBS IN A WEEK GAINS TO YOUR DOCTOR. DIET: CARDIAC DIET [facility] OUTPATIENT: TO HAVE A 2 D ECHO ON; SUNDAY, FEBRUARY 07, 2021 @ 1100 AM. MD FOLLOW UP: SEE DR. ZABALA/ ISRA CHEATHAM APRN/ CRYSTAL PHIPPS APRN IN THE OFFICE FEBRUARY 14, 2021 @ 1115 AM. ORTHOPAEDIC CONSULT: [facility] WITH DR. JARROD ZABALA, REFERRAL FAXED, WILL CONTACT WITH AN APPOINTMENT PHONE # [phone]. TAKE DISC PORVIDED BY [facility] TO APPOINTMENT CODE STATUS: DO NOT RESUSCITATE MRS OLIVARES IS ALERT AND ORIENTED X 4. SHE HAS REMAINED PLEASANT. SHE IS UP AND AMBULATORY INDEPENDENTLY. HER SKIN HAS REMAINED WARM, DRY AND INTACT. SHE IS INCONTINENT OF BOWEL AND BLADDER. LAST BM 02/02/2021. SHE IS TO FOLLOW UP WITH [facility] WITH DR. JARROD ZABALA RELATED TO LT KNEE FINDINGS. INSTRUCTIONS ON BACK EXERCISES PROVIDED. MD ISRA HANDY APRN ALYCE HANNAN, APRN
--- NOTE | 2021-02-04 14:25 | PN ---
DATE OF SERVICE: 02/03/21 - DISCHARGE NOTE SUBJECTIVE: 75-year-old white female hospitalized with left leg pain which was 6 to 9 on a scale of 1 to 10 with swelling. Also had some swelling of the right lower extremity. The patient's leg pain is a lot better, probably 1 to 2 on a scale of 1 to 10. The leg swelling has practically subsided. She is mildly short of breath as usual. No fluid retention noted. REVIEW OF SYSTEMS: CONSTITUTIONAL: No night sweats. No fatigue, malaise, lethargy. No fever or chills. HEENT: Eyes: No visual changes. No eye pain. No eye discharge. ENT: No runny nose. No epistaxis. No sinus pain. No sore throat. No odynophagia. No congestion. RESPIRATORY: No cough, no congestion. No hemoptysis. No shortness of breath. CARDIOVASCULAR: No angina symptoms. No CHF symptoms. No atypical chest pain for CAD. No palpitations. No PND. No orthopnea. GASTROINTESTINAL: No abdominal pain. No nausea or vomiting. No diarrhea or constipation. No hematemesis. No hematochezia. GENITOURINARY: No urgency. No frequency. No dysuria. No hematuria. No obstructive symptoms. No discharge. No pain. No significant abnormal bleeding. MUSCULOSKELETAL: Left leg pain is a lot better. Practically no back pain. NEUROLOGICAL: No headache. No neck pain. No syncope. No seizures. No dizziness. PSYCHIATRIC: Not anxious. No depression. No suicidal thoughts. No homicidal thoughts. SKIN: No rash. No lesions. No wounds. ENDOCRINE: No unexplained weight loss. No weight gain. HEMATOLOGIC/LYMPHATIC: No anemia. No purpura. No petechiae. No prolonged or excessive bleeding. No palpable lymph nodes. PHYSICAL EXAMINATION: VITAL SIGNS: Temperature 97.6, pulse 62, respiratory rate 16, blood pressure 160/88, pulse ox 96%. HEENT: Head normocephalic, atraumatic. Eyes: Extraocular muscles are intact. Pupils are equal, round and reactive to light and accommodation. Ears: No lesions. Nose appeared normal. Throat: No exudate or erythema. NECK: Supple. No JVD, no carotid bruit. No lymphadenopathy or thyromegaly. LUNGS: Decreased breath sounds but clear to auscultation. Percussion note normal. Chest symmetrical. HEART: S1, S2, no S3. No murmurs. No cyanosis or clubbing. No ascites. Pulses: Dorsalis pedis and posterior tibial pulses +1 to +2 bilaterally. ABDOMEN: Soft. Nontender. Bowel sounds active. No CVA tenderness. No mass felt. EXTREMITIES: No leg edema noted. No swelling of the knee. Full range of motion of all extremities, equal. NEUROLOGIC: No focal deficit. Cranial nerves II through XII are grossly intact. No headache. No double vision. SKIN: Not dry. Intact. Turgor - normal. LYMPHATIC: No palpable lymph nodes/no lymphedema. MUSCULOSKELETAL: Normal joints with no swelling. Muscle tone is normal. LABS: Hemoglobin 13.2, hematocrit 42, WBC 4,200, potassium 4.2, creatinine 0.6, BUN 76, blood sugar 117. ASSESSMENT: Left lower extremity pain has subsided. Likely the patient's pain started with left knee pseudogout with chondrocalcinosis with swelling of the left lower extremity with fluid retention from taking nonsteroidal antiinflammatory. PLAN: 1. The patient has been treated with IV Lasix and nonsteroidal antiinflammatory with IV Toradol, steroids. The patient's condition has improved. 2. The patient is going to be seeing orthopaedic surgeon. 3. She will be discharged on 40 mg of Lasix with nonsteroidal antiinflammatory and she is to see us back in 7 days. CONDITION: Stable TIME SPENT: More than 30 minutes. Plan and coordination of the patient's care discussed in the presence of nurse. ELLIOTT
--- NOTE | 2021-02-07 13:25 | DS ---
DATE OF SERVICE: 02/03/21 FINAL DIAGNOSIS: 1. LT LOWER EXTREMITY PAIN WITH SWELLING 2. LEFT SCIATICA 3. LEFT KNEE JOINT EFFUSION WITH CHONDROCALCINOSIS-PER LT KNEE CT 02/01/21 HX: 4. LVH WITH INCREASE LAC HYPOKINETIC SEPTUM 5. SHORTNESS OF BREATH WITH FLUID RETENTION 6. VERTIGO 7. ELEVATED LIVER ENZYMES 8. HERPES ZOSTER 9. NON-STEMI - 09/2012 10. CAD WITH STENT- DR. COLLAZO 11. HYPERTENSION 12. DYSLIPIDEMIA 13. 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 ZABRINA 16. DEPRESSION 17. OSTEOARTHRITIS OF THE KNEE PAST SURGICAL HISTORY: 18. STENTS TIMES 5 19. CHOLECYSTECTOMY 20. LUMPECTOMY(RIGHT AND LEFT) BREAST - DR. SAAVEDRA 21. BILATERAL CATARACT SURGERY 22. HYSTERECTOMY LAST VITALS Temp Pulse Resp BP Pulse Ox 97.6 F 62 16 156/79 H 96 02/03/21 05:43 02/03/21 05:43 02/03/21 05:43 02/03/21 07:22 02/03/21 05:43 DISCHARGE INSTRUCTIONS: 1. DISCHARGE HOME: TODAY, FEBRUARY 03, 2021. LIVES INDEPENDENTLY 2. WEIGH DAILY: WHEN YOU FIRST GET UP, AFTER YOU EMPTY YOUR BLADDER AND WHILE STILL IN YOUR BED CLOTHES. REPORT 2-3 LBS IN A DAY OR 5-7 LBS IN A WEEK GAINS TO YOUR DOCTOR. 3. [facility] OUTPATIENT: TO HAVE A 2D ECHO ON SUNDAY, FEBRUARY 07, 2021 @ 1100 AM. 4. MD FOLLOW UP: SEE DR. ZABALA/ISRA CHEATHAM APRN/CRYSTAL PHIPPS APRN IN THE OFFICE FEBRUARY 14, 2021 @ 1115 AM. 5. ORTHOPAEDIC CONSULT: [facility] WITH DR. JARROD ZABALA, REFERRAL FAXED, WILL CONTACT WITH AN APPOINTMENT, PHONE#[phone]. TAKE DISC PROVIDED BY [facility] TO APPOINTMENT. MEDICATIONS AT DISCHARGE: Amlodipine Besylate (Amlodipine Besylate 5 Mg Tablet) 5 mg PO DAILY [facility] Last Admin: 02/03/21 09:43 Dose: 5 mg Documented by: Aspirin (Aspirin 81 Mg Tablet.) 81 mg PO DAILYWM [facility] Last Admin: 02/03/21 09:42 Dose: 81 mg Documented by: Atorvastatin Calcium (Atorvastatin Calcium 10 Mg Tablet) 10 mg PO BEDTIME [facility] Last Admin: 02/02/21 20:48 Dose: 10 mg Documented by: Carvedilol (Carvedilol 6.25 Mg Tablet) 6.25 mg PO BIDWM [facility] Last Admin: 02/03/21 09:43 Dose: 6.25 mg Documented by: Diclofenac Sodium (Diclofenac Sodium 75 Mg Tablet.Dr) 75 mg PO DAILY -- ( NEW) Last Admin: 02/03/21 09:43 Dose: 75 mg Documented by: Escitalopram Oxalate (Escitalopram Oxalate 10 Mg Tablet) 15 mg PO DAILY [facility] Last Admin: 02/03/21 09:42 Dose: 15 mg Documented by: Famotidine (Famotidine 20 Mg Tablet) 20 mg PO QDAC [facility] Last Admin: 02/03/21 05:46 Dose: 20 mg Documented by: Fish Oil ([place]-3/Dha/Epa/Fish Oil 1,000 Mg Capsule) 2,000 mg PO BID [facility] Last Admin: 02/03/21 09:43 Dose: 2,000 mg Documented by: Furosemide 40 MG PO QDAC [facility] --- ( CHANGED) Last Admin: 02/03/21 05:31 Dose: 20 mg Documented by: Losartan Potassium (Losartan Potassium 25 Mg Tablet) 50 mg PO BID [facility] Last Admin: 02/03/21 09:43 Dose: 50 mg Documented by: Nitroglycerin (Nitroglycerin 0.4 Mg Tab.Subl) 0.4 mg SL Q5MIN X 3 DOSES PRN PRN Reason: Chest Pain Non-Formulary Medication (Vitamins A,C,E-Dkzd-Raerju )1 cap PO BID [facility] Last Admin: 02/03/21 09:42 Dose: 1 cap Documented by: Potassium Chloride (Potassium Chloride 10 Meq Capsule.Er) 10 meq PO BIDWM [facility] Last Admin: 02/03/21 09:42 Dose: 10 meq Documented by: PREDNISONE 10 MG PO BID X 5 DAYS WITH MEAL -- (NEW) NEW PRESCRIPTIONS: VOLTERAN (Diclofenac Sodium) 75 mg PO DAILY -- (NEW) LASIX (Furosemide) 40 MG PO QDAC [facility] --- (CHANGED) PREDNISONE 10 MG PO BID X 5 DAYS WITH MEAL -- (NEW) DISCONTINUED MEDICATIONS: LASIX 20 MG PO DAILY DIET INSTRUCTIONS: CARDIAC DIET ACTIVITY: UP TOLERATED WITH FREQUENT REST PERIODS NO OUTSIDE ACTIVITIES UNTIL RELEASED BY MD AT FOLLOW APPOINTMENT FOLLOW BACK EXERCISES WITH INFORMATION PROVIDED BY [facility] WEIGH DAILY: WHEN YOU FIRST GET UP, AFTER YOU EMPTY YOUR BLADDER AND WHILE STILL IN YOUR BED CLOTHES. REPORT 2-3 LBS IN A DAY OR 5-7 LBS IN A WEEK GAINS TO YOUR DOCTOR. SMOKING: N/A DISEASE SPECIFIC EDUCATION: PAIN CONTROL DAILY WEIGHTS CARDIOMEGALY F/U 2 D ECHO BACK EXERCISES COVID 19 ORTHO F/U HOSPITAL COURSE: 75-year-old white female hospitalized from the office with left lower extremity pain which was quite severe, which was rated from 3 to 9 on a scale of 1 to 10. The patient had swelling, +2 pitting edema and edema of the thigh. The patient was ruled out to have DVT. The patient also had some swelling of the right lower extremity. The patient had taken some Ibuprofen and Tylenol, practically no relief. She never had this type of pain before. The patient, besides going through venous scan, had CT scan of the knee which showed moderate pleural effusion and chondrocalcinosis lumbosacral spine. CT scan showed discogenic DJD which was moderate. The patient likely has some symptoms coming from back, some from the knee. In any case with IV Lasix, IV Toradol and steroids, the patient's condition has improved. Her pain is 1 to 2 on a scale of 1 to 10. She is also to be seen by orthopaedic surgeon as an outpatient on consultation. Her Lasix dose was increased to 20. For the time being she is going to be on Diclofenac 175 mg p.o. daily, Prednisone 10 mg twice a day for 5 days. Advised to continue the rest of the medication. She will have echocardiogram done as an outpatient to evaluate for her shortness of breath and especially LV function. The patient has several risk factors for coronary artery disease. The patient also advised to lose weight. Her BMI is 32. She was advised to lose at least 25 to 30 lbs. Diet discussed. Condition at time of discharged stable. TIME SPENT: More than 60 minutes. ELLIOTT
--- NOTE | 2021-02-07 13:29 | PN ---
BILLING 01/31/21 ADMISSION DAY LEVEL 5 02/01/21 INTERMEDIATE 02/02/21 INTERMEDIATE 02/03/21 FINAL DAY, D IN DISCHARGE MTDD
== END 2021-02-03 17:00 | disposition home or self-care (01) | DRG 552 ==
LOC: RAD 09:48 → MEDSURG A 13:58
PROVIDERS: ADMIT Internal Medicine; ATTEND Internal Medicine
DX: Z20.822 Contact with and (suspected) exposure to COVID-19; R60.9 Edema, unspecified; M79.662 Pain in left lower leg; R06.02 Shortness of breath; M19.90 Unspecified osteoarthritis, unspecified site; E78.5 Hyperlipidemia, unspecified; I10 Essential (primary) hypertension; L03.116 Cellulitis of left lower limb; M11.162 Familial chondrocalcinosis, left knee; M54.42 Lumbago with sciatica, left side; R73.9 Hyperglycemia, unspecified; M79.89 Other specified soft tissue disorders; F41.1 Generalized anxiety disorder